=== PATIENT | male | born 2000 | race Two or more races ===

== ENCOUNTER 2024-03-11 23:07 | Emergency (ER) | payer MEDICAID, SELFPAY ==
[2024-03-11 23:18] VITALS: BMI 30.5
[2024-03-11 23:20] VITALS: BP 144/92; PULSE 86; RESP 20; TEMP 36.5; O2SAT 98
--- NOTE | 2024-03-11 23:42 | PD.EDSUICD ---
ED Psych RME/HPI General Chief Complaint: Suicidal Stated Complaint: SI Time Seen by Provider: 03/11/24 23:41 Arrival date/time: 03/11/24 23:07 Limitations: no limitations RME / HPI RME / HPI Narrative: Dr. Castillo's Main ED Evaluation: 23yo female with schizophrenia, bipolar disorder, JORDY BIBA from crisis response team in [place] presents to the ED on a 5150 hold. Per 5150 note, patient endorsed having SI, reporting he wanted to hang himself and/or slit his throat. Patient endorses having auditory and visual hallucinations. Denies any HI. Patient is not compliant with his psych medications. Related Data Previous Rx's ?Medication ?Instructions ?Recorded prednisone 50 mg tablet 50 mg PO QDAY #7 tabs 09/28/22 valacyclovir 1 gram tablet 1,000 mg PO TID #21 tabs 09/28/22 (Valtrex) ondansetron 4 mg disintegrating 4 mg PO Q8H PRN nausea and 11/12/22 tablet vomiting #30 tabs baclofen 10 mg tablet 10 mg PO TID #20 tabs 12/28/22 bacitracin 500 unit/gram topical 1 applic topical Q8H #14 grams 01/19/23 ointment Allergies Allergy/AdvReac Type Severity Reaction Status Date / Time No Known Allergies Allergy Verified 08/23/23 17:42 Review of Systems Review of Systems Systems Reviewed: All systems reviewed, normal except as documented ED Exam General Limitations: Present no limitations General appearance: Present alert and in no apparent distress Head Head exam: Present atraumatic Eye Eye exam: Present normal appearance, PERRL and EOMI ENT ENT exam: Present normal exam, normal oropharynx and mucous membranes moist Neck Neck exam: Present normal inspection, full ROM and trachea midline Chest Chest inspection: Present normal inspection and symmetric chest wall rise Respiratory Respiratory exam: Present normal lung sounds bilaterally Cardiovascular Cardiovascular exam: Present regular rate, normal rhythm and normal heart sounds Abdominal Exam Abdominal exam: Present soft and normal bowel sounds Extremities Exam Extremities exam: Present normal inspection and full ROM Back Exam Back exam: Present normal inspection and full ROM Neurological Exam Neurological exam: Present alert, oriented X3 and CN II-XII intact Psychiatric Psychiatric exam: Present agitated, anxious and suicidal ideation Skin Skin exam: Present warm, dry, intact and normal color Course Course Course Narrative: 0154: Patient is medically clear for crisis evaluation. OBSERVATION NOTE: The patient was placed in ED observation care at 03/12/24 at 0154 hours. The patient was placed in ED observation care because of pending psychiatric placement. The patients past medical history, social history, and family history were reviewed. 0605: Patient is accepted to [facility] by Dr. Matilde Dominguez and [employer] Donita. Quality Measures none Orders Category Date Time Status Bedside COVID-19 Antigen Test NOW Care 03/11/24 23:17 Active Acetaminophen Stat Lab 03/11/24 23:37 Completed Alcohol, Blood Medical Stat Lab 03/11/24 23:37 Completed CBC Stat Lab 03/11/24 23:37 Completed Comprehensive Metabolic Panel Stat Lab 03/11/24 23:37 Completed Drug Screen,Urine Stat Lab 03/11/24 23:13 Completed Salicylate Stat Lab 03/11/24 23:37 Completed Urinalysis Stat Lab 03/11/24 23:13 Completed DiphenhydrAMINE [Benadryl] Med 03/12/24 01:54 Discontinued 25 mg PO X1 ONE Vital Signs Vital signs: Vital Signs Temperature 97.7 F 03/11/24 23:20 Pulse Rate 86 03/11/24 23:20 Respiratory Rate 20 03/11/24 23:20 Blood Pressure 144/92 H 03/11/24 23:20 Pulse Oximetry (%) 98 03/11/24 23:20 Oxygen Delivery Method Room Air 03/11/24 23:20 Psych Patient data External records reviewed:: Other (specify) (Reviewed 5150 paperwork.) Clinical information provided by:: patient Social determinants that could affect healthcare access:: mental health Patient has the following chronic illnesses:: schizophrenia, bipolar disorder, JORDY How is presenting disease/condition affected by chronic disease/condition?: exacerbated by Evaluation data The following diagnostics were reviewed and interpreted by me:: lab results Lab and/or radiology exams considered but not ordered:: none Interpretation Summary: CBC is normal, CMP is normal, UA is unremarkable, UDS is positive for marijuana, Blood alcohol is negative, Acetaminophen is negative, according to my interpretation. Medications / Prescriptions Medications or Prescriptions considered but not ordered:: none Medication administrations:: Medication Administration History Discontinued Medications Diphenhydramine HCl (Diphenhydramine 25 Mg Capsule) 25 mg PO X1 ONE Stop: 03/12/24 01:55 Last Admin: 03/12/24 01:57 Dose: 25 mg Documented By: SUHAIL see above Consultations Consultation(s) initiated? (list below): No Diagnosis Psych Differential Diagnosis: acute psychosis, chronic schizophrenia, suicidal ideation and bipolar disorder Most likely diagnosis given after review of the tests above:: see below Admission Indicated Admission indicated?: not indicated Admission Request Was there a request for admission?: No Disposition Plan Disposition Plan: Transfer Discharge Plan Plan Patient Disposition: HOME (Self Care) Patient condition on transfer: Stable Prescriptions/Referrals Prescriptions/Med Rec: No Action baclofen 10 mg tablet 10 mg PO TID Qty: 20 0RF prednisone 50 mg tablet 50 mg PO QDAY Qty: 7 0RF valacyclovir [Valtrex] 1 gram tablet 1,000 mg PO TID Qty: 21 0RF ondansetron 4 mg tablet,disintegrating 4 mg PO Q8H PRN (Reason: nausea and vomiting) Qty: 30 0RF bacitracin 500 unit/gram ointment 1 applic topical Q8H Qty: 14 0RF Problem List Clinical Impression: Suicidal ideation, History of bipolar disorder, Hallucinations Patient/Caregiver Discharge Instructions Print Language: Lithuanian Stand Alone Forms: Jesusita Award Info., Patient Portal Info Letter
[2024-03-12 00:10] LABS: Collection Type, Urine Clean Catch
[2024-03-12 00:16] LABS: Basophils # (Auto) 0.1 Thou/mm3 (0.0-0.2); Basophils % (Auto) 1 % (0-2.5); Eosinophils # (Auto) 0.1 Thou/mm3 (0.0-0.5); Eosinophils % (Auto) 1 % (0-10); Hematocrit 47.7 % (41.0-53.0); Hemoglobin 16.7 g/dL (13.5-16.0); Immature Granulocytes % (Auto) 0 % (0-0); Immature Granulocytes Auto 0.01 Thou/mm3 (0.00-0.00); Lymphocytes # (Auto) 2.3 Thou/mm3 (1.0-4.8); Lymphocytes % (Auto) 27 % (10-50); Mean Corpuscular Hemoglobin 30.1 pg (25.0-35.0); Mean Corpuscular Volume 86 fL (80-100); Monocytes # (Auto) 0.7 Thou/mm3 (0.0-0.8); Monocytes % (Auto) 8 % (0-12); Neutrophils # (Auto) 5.4 Thou/mm3 (1.8-7.7); Neutrophils % (Auto) 63 % (37-80); Nucleated Red Blood Cell % 0 /100 WBC (0); Platelet Count 289 Thou/mm3 (140-440); RDW Standard Deviation 38.7 fL (35.1-43.9); Red Blood Count 5.55 Miln/mm3 (4.50-5.90); White Blood Count 8.7 Thou/mm3 (3.8-10.6)
[2024-03-12 00:33] LABS: Acetaminophen < 2.0 mcg/mL (10.0-20.0); Alanine Aminotransferase 167 U/L (10-49); Albumin/Globulin Ratio 2.2 (1.2-2.2); Alcohol, Blood Medical < 3.0 mg/dL (0-10.0); Alkaline Phosphatase 68 U/L (46-116); Anion Gap 9 (7-16); Aspartate Amino Transferase 84 U/L (0-34); BUN/Creatinine Ratio 9 Ratio (12-20); Bilirubin,Total 0.6 mg/dL (0.3-1.2); Blood Urea Nitrogen 11 mg/dL (9-23); Calcium 9.6 mg/dL (8.3-10.6); Calcium (Corrected) 9.6 mg/dL (8.5-10.1); Carbon Dioxide 27.8 mMol/L (20.0-31.0); Chloride 104 mMol/L (98-107); Creatinine (Component) 1.2 mg/dL (0.6-1.3); Estimated Creatinine Clearance 120.4 mL/min (>60); Globulin 2.3 gm/dL (2.3-3.5); Glucose 105 mg/dL (74-106); Osmolality,Calculated 280 (275-295); Potassium 3.9 mMol/L (3.4-5.1); Salicylate < 3.0 mg/dL; Sodium 141 mMol/L (136-145); Total Protein 7.3 gm/dL (5.7-8.2); eGFR > 60 See Note
[2024-03-12 00:44] LABS: Bilirubin,Urine Negative (Negative); Blood,Urine Negative (Negative); Clarity,Urine Clear (Clear/Hazy); Color,Urine Yellow (Lt Yel-Yel); Glucose, Urine Negative (Negative); Ketones,Urine Trace (Negative); Leukocyte Esterase,Urine Negative (Negative); Nitrite,Urine Negative (Negative); PH,Urine 6.5 (5.0-7.0); Protein,Urine 1+ (Neg - Trace); RBC,Urine 5 /hpf (0-3); Specific Gravity,Urine 1.033 (1.001-1.035); Squamous Epithelial Cell,Urine < 1 /hpf (0-5); WBC,Urine 2 /hpf (0-5)
[2024-03-12 01:31] LABS: Amphetamine/Methamp Scrn,U Negative (Negative); Barbiturate Screen,Urine Negative (Negative); Benzodiazepines Screen,Urine Negative (Negative); Benzoylecgonine Screen, Ur Negative (Negative); Fentanyl Screen,Urine Negative (Negative); Opiate Screen,Urine Negative (Negative); THC Screen,Urine Positive (Negative)
[2024-03-12] MEDS: DiphenhydrAMINE 25 MG CAPSULE PO (01:57)
[2024-03-12 01:59] VITALS: BP 109/79; PULSE 71; RESP 20; TEMP 36.5; O2SAT 98
--- NOTE | 2024-03-12 04:17 | PC.NURSE ---
PACKET SENT OUT TO ALL ADULT LPS FACILITIES, PT MEDICALLY CLEARED AND NOW PENDING PSYCHIATRIC PLACEMENT
[2024-03-12 04:28] VITALS: BP 114/78; PULSE 79; RESP 20; TEMP 36.2; O2SAT 98
--- NOTE | 2024-03-12 05:51 | PC.NURSE ---
ARUNA CALLED TO GET CLINICALS FROM PRIMARY RN
[2024-03-12 06:00] VITALS: BP 130/84; PULSE 70; RESP 19; TEMP 36.2; O2SAT 100
--- NOTE | 2024-03-12 06:13 | PC.NURSE ---
ACCEPTED [facility], DR NOLEN/YADIEL. [id number] [place] [address] REPORT #[phone]
--- NOTE | 2024-03-12 07:08 | PC.CC ---
Patient was placed on a 5150-Hold by [facility] with [email or web address] [facility] for Danger to Self. Patient has been accepted to [facility], Dr. Dominguez, transportation is arranged for ETA p/u 0830. ASW met with the patient face to face introduced self, role, and reason for visit. ASW provided advisement to the patient that he has been accepted to [facility].
--- NOTE | 2024-03-12 08:00 | PC.NURSE ---
pt offered breakfast meal, pt refused.
[2024-03-12 08:06] VITALS: BP 137/86; PULSE 70; RESP 12; TEMP 36.6; O2SAT 98
[2024-03-12 08:55] VITALS: BP 125/67; PULSE 80; RESP 16; TEMP 36.6; O2SAT 99
== END 2024-03-12 08:55 ==
PROVIDERS: Emergency Provider Emergency Medicine; PCP Physician Assistant
DX: R45.851 Suicidal ideations (principal); F31.9 Bipolar disorder, unspecified; F20.9 Schizophrenia, unspecified
CPT/HCPCS: 36415; 80053; 80307; 80320; 80329; 81001; 85025; 87811; 96127; 99285; A9270; G0480

== ENCOUNTER 2024-05-13 10:43 | Emergency (ER) | payer MEDICAID, SELFPAY ==
[2024-05-13 10:58] VITALS: PULSE 95; RESP 19; O2SAT 100; BMI 31.6
[2024-05-13 11:07] VITALS: BP 128/81; PULSE 75; RESP 16; TEMP 36.9; O2SAT 97
--- NOTE | 2024-05-13 11:19 | EKG_ITS ---
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
--- NOTE | 2024-05-13 11:20 | PD.EDRME ---
Rapid Medical Screening Exam RME Arrival date/time: 05/13/24 10:43 23-year-old male with a history of schizophrenia, presents to the emergency room with a chief complaint of dizziness, lightheadedness, visual disturbances x 3 days. I have greeted and performed a focused initial assessment of this patient. A comprehensive ED assessment and evaluation of the patient, analysis of all test results, and completion of the medical decision making process will be conducted by additional ED providers. Time Seen by Provider: 05/13/24 11:06 Vital signs: Vital Signs Temperature 98.4 F 05/13/24 11:07 Pulse Rate 75 05/13/24 11:07 Respiratory Rate 16 05/13/24 11:07 Blood Pressure 128/81 05/13/24 11:07 Pulse Oximetry (%) 97 05/13/24 11:07 Oxygen Delivery Method Room Air 05/13/24 11:07 Vital signs reviewed by provider: Yes
[2024-05-13 11:59] LABS: Basophils # (Auto) 0.1 Thou/mm3 (0.0-0.2); Basophils % (Auto) 1 % (0-2.5); Eosinophils # (Auto) 0.1 Thou/mm3 (0.0-0.5); Eosinophils % (Auto) 1 % (0-10); Hematocrit 46.5 % (41.0-53.0); Hemoglobin 16.3 g/dL (13.5-16.0); Immature Granulocytes % (Auto) 1 % (0-0); Immature Granulocytes Auto 0.04 Thou/mm3 (0.00-0.00); Lymphocytes # (Auto) 1.7 Thou/mm3 (1.0-4.8); Lymphocytes % (Auto) 23 % (10-50); Mean Corpuscular HGB Conc 35.1 g/dl (31.0-37.0); Mean Corpuscular Hemoglobin 29.7 pg (25.0-35.0); Mean Corpuscular Volume 85 fL (80-100); Monocytes # (Auto) 0.5 Thou/mm3 (0.0-0.8); Monocytes % (Auto) 6 % (0-12); Neutrophils # (Auto) 5.2 Thou/mm3 (1.8-7.7); Neutrophils % (Auto) 69 % (37-80); Nucleated Red Blood Cell % 0 /100 WBC (0); Platelet Count 269 Thou/mm3 (140-440); RDW Standard Deviation 36.8 fL (35.1-43.9); Red Blood Count 5.48 Miln/mm3 (4.50-5.90); White Blood Count 7.6 Thou/mm3 (3.8-10.6)
[2024-05-13 12:20] LABS: Alanine Aminotransferase 83 U/L (10-49); Albumin, Serum 4.7 gm/dL (3.5-5.0); Albumin/Globulin Ratio 1.9 (1.2-2.2); Alkaline Phosphatase 76 U/L (46-116); Anion Gap 6 (7-16); Aspartate Amino Transferase 49 U/L (0-34); BUN/Creatinine Ratio 6 Ratio (12-20); Bilirubin,Total 0.5 mg/dL (0.3-1.2); Blood Urea Nitrogen 7 mg/dL (9-23); Calcium 9.8 mg/dL (8.3-10.6); Calcium (Corrected) 9.8 mg/dL (8.5-10.1); Carbon Dioxide 30.9 mMol/L (20.0-31.0); Chloride 102 mMol/L (98-107); Creatinine (Component) 1.1 mg/dL (0.6-1.3); Estimated Creatinine Clearance 137.5 mL/min (>60); Globulin 2.5 gm/dL (2.3-3.5); Glucose 102 mg/dL (74-106); Osmolality,Calculated 275 (275-295); Potassium 4.5 mMol/L (3.4-5.1); Sodium 139 mMol/L (136-145); Total Protein 7.2 gm/dL (5.7-8.2); Troponin I < 0.002 ng/mL (0.0-0.045); eGFR > 60 See Note
[2024-05-13 12:54] LABS: Collection Type, Urine Clean Catch; Squamous Epithelial Cell,Urine 0 /hpf (0-5)
[2024-05-13 13:09] LABS: Bilirubin,Urine Negative (Negative); Blood,Urine Negative (Negative); Clarity,Urine Clear (Clear/Hazy); Color,Urine Colorless (Lt Yel-Yel); Glucose, Urine Negative (Negative); Ketones,Urine Negative (Negative); Leukocyte Esterase,Urine Negative (Negative); Nitrite,Urine Negative (Negative); PH,Urine 7.5 (5.0-7.0); Protein,Urine Negative (Neg - Trace); RBC,Urine < 1 /hpf (0-3); Specific Gravity,Urine 1.007 (1.001-1.035); Urobilinogen,Urine Negative mg/dL (0.0-1.0); WBC,Urine < 1 /hpf (0-5)
[2024-05-13 13:19] LABS: Amphetamine/Methamp Scrn,U Negative (Negative); Barbiturate Screen,Urine Negative (Negative); Benzodiazepines Screen,Urine Negative (Negative); Benzoylecgonine Screen, Ur Negative (Negative); Fentanyl Screen,Urine Negative (Negative); Opiate Screen,Urine Negative (Negative); THC Screen,Urine Positive (Negative)
--- NOTE | 2024-05-13 13:56 | PD.EDRME ---
Rapid Medical Screening Exam RME Arrival date/time: 05/13/24 10:43 05/13/24 10:43 23-year-old male with a history of schizophrenia, presents to the emergency room with a chief complaint of dizziness, lightheadedness, visual disturbances x 3 days. I have greeted and performed a focused initial assessment of this patient. A comprehensive ED assessment and evaluation of the patient, analysis of all test results, and completion of the medical decision making process will be conducted by additional ED providers. Time Seen by Provider: 05/13/24 11:06 Vital signs: Vital Signs Temperature 98.4 F 05/13/24 11:07 Pulse Rate 75 05/13/24 11:07 Respiratory Rate 16 05/13/24 11:07 Blood Pressure 128/81 05/13/24 11:07 Pulse Oximetry (%) 97 05/13/24 11:07 Oxygen Delivery Method Room Air 05/13/24 11:07 Vital signs reviewed by provider: Yes RME Narrative: 05/13/24 10:43 23-year-old male with a history of schizophrenia, presents to the emergency room with a chief complaint of dizziness, lightheadedness, visual disturbances x 3 days. I have greeted and performed a focused initial assessment of this patient. A comprehensive ED assessment and evaluation of the patient, analysis of all test results, and completion of the medical decision making process will be conducted by additional ED providers.
== END 2024-05-13 19:00 | disposition left against medical advice (07) ==
LOC: SERX 12:32
PROVIDERS: Nurse Practitioner Family; Emergency Provider Emergency Medicine; PCP Physician Assistant
DX: R42 Dizziness and giddiness (principal); H53.9 Unspecified visual disturbance; I49.8 Other specified cardiac arrhythmias; Z53.29 Procedure and treatment not carried out because of patient's decision for other reasons
CPT/HCPCS: 36415; 80053; 80307; 81001; 84484; 85025; 87086; 93005; 99281

== ENCOUNTER 2024-05-29 22:23 | Emergency (ER) | payer MEDICAID, SELFPAY ==
[2024-05-29 22:23] VITALS: BMI 31.8
--- NOTE | 2024-05-29 22:28 | EKG_ITS ---
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
[2024-05-29 22:43] VITALS: BP 127/85; PULSE 84; RESP 19; TEMP 36.6; O2SAT 96
[2024-05-29] MEDS: MECLIZINE HCL 25 MG TABLET 50 MG PO (23:29)
--- NOTE | 2024-05-30 04:10 | PD.EDDIZZY ---
ED Dizzyness RME/HPI General Chief Complaint: Dizziness Stated Complaint: DIZZY AND LIGHTHEADED Time Seen by Provider: 05/29/24 23:10 Arrival date/time: 05/29/24 22:23 23M with history of psych/alcohol use presents to ED several weeks of dizziness. Patient has been taking his meds. Limitations: no limitations Related Data Previous Rx's ?Medication ?Instructions ?Recorded prednisone 50 mg tablet 50 mg PO QDAY #7 tabs 09/28/22 valacyclovir 1 gram tablet 1,000 mg PO TID #21 tabs 09/28/22 (Valtrex) ondansetron 4 mg disintegrating 4 mg PO Q8H PRN nausea and 11/12/22 tablet vomiting #30 tabs baclofen 10 mg tablet 10 mg PO TID #20 tabs 12/28/22 bacitracin 500 unit/gram topical 1 applic topical Q8H #14 grams 01/19/23 ointment meclizine 25 mg tablet 25 mg PO BID PRN dizziness #30 tabs 05/30/24 Allergies Allergy/AdvReac Type Severity Reaction Status Date / Time No Known Allergies Allergy Verified 05/13/24 11:02 Review of Systems Review of Systems Systems Reviewed: All systems reviewed, normal except as documented Constitutional Constitutional: Reports system reviewed and no additional complaints, except as documented, Denies fever(s) and Denies headache(s) ENT Ears, Nose, Mouth, and Throat: Reports as per HPI, Denies disequilibrium, Denies headache(s) and Reports vertigo Cardiovascular Cardiovascular: Reports system reviewed and no additional complaints, except as documented, Denies chest pain and Denies dyspnea Respiratory Respiratory: Reports system reviewed and no additional complaints, except as documented, Denies cough and Denies dyspnea Gastrointestinal Gastrointestinal: Reports system reviewed and no additional complaints, except as documented, Denies abdominal pain, Denies nausea and Denies vomiting Neurologic Neurologic: Reports system reviewed and no additional complaints, except as documented, Denies confusion, Denies disequilibrium, Denies headache(s) and Reports vertigo Psychiatric Psychiatric: Denies confusion Past Medical History Past Medical History NEUROLOGIC: Positive Neurological Disorders CARDIAC: Negative Congestive Heart Failure RESPIRATORY: Negative Chronic Obstructive Pulmonary Disease (COPD) GENITOURINARY: Negative Renal Disease ENDOCRINE: Negative Diabetes Mellitus Type 1 or Diabetes Mellitus Type 2 PSYCHO/SOCIAL: Positive Psychiatric Problems, Schizophrenia, Recreational Drug Use and Bipolar Disorder Social History SMOKING STATUS: Current every day smoker SUBSTANCE USE: marijuana and crack/cocaine ED Exam General Limitations: Present no limitations General appearance: Present alert and in no apparent distress Head Head exam: Present atraumatic Eye Eye exam: Present normal appearance, PERRL and EOMI ENT ENT exam: Present normal exam, normal oropharynx and mucous membranes moist Neck Neck exam: Present normal inspection, full ROM and trachea midline Chest Chest inspection: Present normal inspection and symmetric chest wall rise Respiratory Respiratory exam: Present normal lung sounds bilaterally Cardiovascular Cardiovascular exam: Present regular rate, normal rhythm and normal heart sounds Abdominal Exam Abdominal exam: Present soft and normal bowel sounds Extremities Exam Extremities exam: Present normal inspection and full ROM Back Exam Back exam: Present normal inspection and full ROM Neurological Exam Neurological exam: Present alert, oriented X3 and CN II-XII intact Psychiatric Psychiatric exam: Present normal affect and normal mood Skin Skin exam: Present warm, dry, intact and normal color Course Quality Measures none Orders Category Date Time Status EKG (ED ONLY) *Do not use* NOW Care 05/29/24 22:28 Completed EKG (ED Only) Stat Exams 05/29/24 22:28 Draft Meclizine HCl [Antivert] Med 05/29/24 23:11 Discontinued 50 mg PO X1 ONE Vital Signs Vital signs: Vital Signs Temperature 97.8 F 05/29/24 22:43 Pulse Rate 84 05/29/24 22:43 Respiratory Rate 19 05/29/24 22:43 Blood Pressure 127/85 H 05/29/24 22:43 Pulse Oximetry (%) 96 05/29/24 22:43 Oxygen Delivery Method Room Air 05/29/24 22:43 O2 at 96% on RA and WNLs Dizziness MDM Narrative MDM Narrative:: 23M with history of psych/alcohol use presents to ED several weeks of dizziness. Patient has been taking his meds. Physical exam reveals normal pupil response and EOM. CN II-XII grossly intact. Gait normal. Patient is afebrile, calm, and alert. EKG is NSR. Meclizine significant improved symptoms. Patient data External records reviewed:: [facility] previous records Clinical information provided by:: patient Social determinants that could affect healthcare access:: mental health Patient has the following chronic illnesses:: psych How is presenting disease/condition affected by chronic disease/condition?: exacerbated by Evaluation data The following diagnostics were reviewed and interpreted by me:: EKG tracing(s) Lab and/or radiology exams considered but not ordered:: ordered Interpretation Summary: above Medications / Prescriptions Medications or Prescriptions considered but not ordered:: ordered Medication administrations:: Medication Administration History Discontinued Medications Meclizine HCl (Meclizine Hcl 25 Mg Tablet) 50 mg PO X1 ONE Stop: 05/29/24 23:12 Last Admin: 05/29/24 23:29 Dose: 50 mg Documented By: MS above Consultations Consultation(s) initiated? (list below): No Diagnosis Dizziness Differential Diagnosis: adverse reaction to drug, benign paroxysmal positional vertigo, orthostatic hypotension, vertebral basilar insufficiency, cerebrovascular accident, acute vestibular neuronitis, transient cerebral ischemia and other (dizziness) Most likely diagnosis given after review of the tests above:: dizziness Admission Indicated Admission indicated?: not indicated Admission Request Was there a request for admission?: No Disposition Plan Disposition Plan: Discharge Discharge Attestation Discharge Attestation: The patient and all family members were given an opportunity to ask questions and understood the discharge instructions. Discharge instructions specifically effects, indications for sooner follow up or return to the emergency department, and the expected course of current diagnosis. Patient condition: Stable Discharge Plan Plan Patient Disposition: HOME (Self Care) Disposition Comment: Stable Prescriptions/Referrals Prescriptions/Med Rec: New meclizine 25 mg tablet 25 mg PO BID PRN (Reason: dizziness) Qty: 30 0RF No Action baclofen 10 mg tablet 10 mg PO TID Qty: 20 0RF prednisone 50 mg tablet 50 mg PO QDAY Qty: 7 0RF valacyclovir [Valtrex] 1 gram tablet 1,000 mg PO TID Qty: 21 0RF ondansetron 4 mg tablet,disintegrating 4 mg PO Q8H PRN (Reason: nausea and vomiting) Qty: 30 0RF bacitracin 500 unit/gram ointment 1 applic topical Q8H Qty: 14 0RF Referrals: No Primary/Family,Physician [Primary Care Provider] - In 1 week Problem List Clinical Impression: Dizziness Patient/Caregiver Discharge Instructions Education Materials: ED Dizziness, Uncertain Cause Additional Instructions: Please follow-up with PCP within 24-48 hours and return immediately if symptoms worsen. Print Language: Setswana Stand Alone Forms: Patient Portal Info Letter CORDELIA/TRESSA Supervising Physician CORDELIA/TRESSA Supervising Physician: Dr. Castillo
== END 2024-05-30 01:00 | disposition home or self-care (01) ==
PROVIDERS: Emergency Provider Emergency Medicine
DX: R42 Dizziness and giddiness (principal)
CPT/HCPCS: 93005; 99283; A9270

== ENCOUNTER → 2024-08-10 | Outpatient (CLI) | payer MEDICAID, SELFPAY ==
--- NOTE | 2024-08-10 08:00 | XR_ITS ---
Examination: MRI brain without intravenous contrast. Date and time of exam: 04/12/2024 0915 hours INDICATIONS: Headaches dizziness beginning this year Technique: Multiple axial and sagittal images of the brain obtained. Siemens high-resolution 1.5 Jenna short bore scanners utilized. Sagittal sections, T1-weighted, TR 500, TE 14, are performed. Axial sections proton-density and T2-weighted have been obtained. Inversion recovery axial images, TR 9, 260, TE 111, TI 2500. Diffusion weighted images, axial sections, TR 4800, TE 128, B value 1000 Axial sections, ADC map, TR 4800, TE 128 Findings: Enlargement of the sella turcica is not present. The optic chiasm and infundibular are not remarkable. Prepontine and interpeduncular cisterns are not enlarged. There is no localized enlargement of the medulla or kandi. Fourth ventricle and cerebellar tonsils appear normal in position. No subacute area of hemorrhage density is seen. Mass in the cerebellopontine angle region is not evident. Globes symmetrical. Orbital musculature including medial lateral rectus muscles do not exhibit abnormality. Diffusion-weighted images demonstrate no focus of restricted diffusion. Increased white matter signal not seen Mass effect upon the ventricular system is not identified. Impression: Negative for acute hemorrhage mass effect or midline shift No acute infarct No MR findings diagnostic for demyelinating disease Significant chronic ethmoid sinusitis
== END | disposition home or self-care (01) ==
PROVIDERS: PCP Physician Assistant; Referring Provider Psychiatry & Neurology Clinical Neurophysiology; Visit Provider Psychiatry & Neurology Clinical Neurophysiology
DX: J32.2 Chronic ethmoidal sinusitis (principal); G40.909 Epilepsy, unspecified, not intractable, without status epilepticus; R62.50 Unspecified lack of expected normal physiological development in childhood
CPT/HCPCS: 70551

== ENCOUNTER 2024-09-14 12:09 | Emergency (ER) | payer MEDICAID, SELFPAY ==
[2024-09-14 12:11] VITALS: BMI 33.0
--- NOTE | 2024-09-14 12:13 | EKG_ITS ---
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
[2024-09-14 12:16] VITALS: BP 132/88; PULSE 106; RESP 18; TEMP 36.7; O2SAT 95
--- NOTE | 2024-09-14 12:29 | XR_ITS ---
Examination: PA lateral chest 2 views TECHNIQUE: Upright PA lateral chest 2 views Date and time: September 14, 2024 1232 hours INDICATIONS: Shortness of breath chest pain beginning 4 days ago. FINDINGS: Normal heart size. Lungs are clear. Osseous structures are intact IMPRESSION: No active disease
--- NOTE | 2024-09-14 12:31 | PD.EDRME ---
Rapid Medical Screening Exam RME Arrival date/time: 09/14/24 12:09 23-year-old male with a history of schizophrenia presents to the emergency room with a chief complaint of palpitations and chest pain x 4 days I have greeted and performed a focused initial assessment of this patient. A comprehensive ED assessment and evaluation of the patient, analysis of all test results, and completion of the medical decision making process will be conducted by additional ED providers. Chief Complaint: Arrhythmia/Palpitations Vital signs: Vital Signs Temperature 98.0 F 09/14/24 12:16 Pulse Rate 106 H 09/14/24 12:16 Respiratory Rate 18 09/14/24 12:16 Blood Pressure 132/88 H 09/14/24 12:16 Pulse Oximetry (%) 95 09/14/24 12:16 Oxygen Delivery Method Room Air 09/14/24 12:16 Vital signs reviewed by provider: Yes
[2024-09-14 12:53] LABS: Collection Type, Urine Clean Catch; Squamous Epithelial Cell,Urine 0 /hpf (0-5)
[2024-09-14 12:54] LABS: Basophils # (Auto) 0.1 Thou/mm3 (0.0-0.2); Basophils % (Auto) 1 % (0-2.5); Eosinophils # (Auto) 0.1 Thou/mm3 (0.0-0.5); Eosinophils % (Auto) 1 % (0-10); Hematocrit 46.4 % (41.0-53.0); Hemoglobin 15.9 g/dL (13.5-16.0); Immature Granulocytes Auto 0.03 Thou/mm3 (0.00-0.00); Lymphocytes # (Auto) 1.7 Thou/mm3 (1.0-4.8); Lymphocytes % (Auto) 23 % (10-50); Mean Corpuscular HGB Conc 34.3 g/dl (31.0-37.0); Mean Corpuscular Hemoglobin 29.8 pg (25.0-35.0); Mean Corpuscular Volume 87 fL (80-100); Monocytes # (Auto) 0.4 Thou/mm3 (0.0-0.8); Monocytes % (Auto) 6 % (0-12); Neutrophils # (Auto) 5.1 Thou/mm3 (1.8-7.7); Neutrophils % (Auto) 69 % (37-80); Nucleated Red Blood Cell # 0.00 Thou/mm3 (0.00-0.00); Nucleated Red Blood Cell % 0 /100 WBC (0); Platelet Count 238 Thou/mm3 (140-440); RDW Standard Deviation 38.4 fL (35.1-43.9); Red Blood Count 5.34 Miln/mm3 (4.50-5.90); White Blood Count 7.4 Thou/mm3 (3.8-10.6)
[2024-09-14 12:57] LABS: Bilirubin,Urine Negative (Negative); Blood,Urine Negative (Negative); Clarity,Urine Clear (Clear/Hazy); Color,Urine Lt-Yellow (Lt Yel-Yel); Glucose, Urine Negative (Negative); Ketones,Urine Negative (Negative); Leukocyte Esterase,Urine Negative (Negative); Nitrite,Urine Negative (Negative); PH,Urine 7.5 (5.0-7.0); Protein,Urine Negative (Neg - Trace); RBC,Urine < 1 /hpf (0-3); Specific Gravity,Urine 1.015 (1.001-1.035); Urobilinogen,Urine Negative mg/dL (0.0-1.0); WBC,Urine 1 /hpf (0-5)
[2024-09-14 13:08] LABS: Amphetamine/Methamp Scrn,U Negative (Negative); Barbiturate Screen,Urine Negative (Negative); Benzodiazepines Screen,Urine Negative (Negative); Benzoylecgonine Screen, Ur Negative (Negative); Fentanyl Screen,Urine Negative (Negative); Opiate Screen,Urine Negative (Negative); THC Screen,Urine Negative (Negative)
[2024-09-14 13:14] LABS: B-Type Natriuretic Peptide < 20 pg/mL (0-100)
[2024-09-14 13:28] LABS: Alanine Aminotransferase 26 U/L (10-49); Albumin, Serum 4.5 gm/dL (3.5-5.0); Albumin/Globulin Ratio 1.7 (1.2-2.2); Alkaline Phosphatase 74 U/L (46-116); Anion Gap 7 (7-16); Aspartate Amino Transferase 24 U/L (0-34); BUN/Creatinine Ratio 6 Ratio (12-20); Bilirubin,Total 0.6 mg/dL (0.3-1.2); Blood Urea Nitrogen 7 mg/dL (9-23); Calcium 9.4 mg/dL (8.3-10.6); Calcium (Corrected) 9.4 mg/dL (8.5-10.1); Carbon Dioxide 26.5 mMol/L (20.0-31.0); Chloride 106 mMol/L (98-107); Creatinine (Component) 1.1 mg/dL (0.6-1.3); Estimated Creatinine Clearance 140.2 mL/min (>60); Globulin 2.7 gm/dL (2.3-3.5); Glucose 100 mg/dL (74-106); Osmolality,Calculated 275 (275-295); Potassium 4.2 mMol/L (3.4-5.1); Sodium 139 mMol/L (136-145); Total Protein 7.2 gm/dL (5.7-8.2); Troponin I < 0.020 ng/mL (0.0-0.045); eGFR > 60 See Note
--- NOTE | 2024-09-14 15:05 | PD.EDARRY ---
ED Arrhythmia Palp. RME/HPI General Chief Complaint: Arrhythmia/Palpitations Stated Complaint: MY HEART HAS BEEN TINGLING FOR 4 DAYS Arrival date/time: 09/14/24 12:09 RME / HPI RME / HPI narrative: 09/14/24 12:09 23-year-old male with a history of schizophrenia presents to the emergency room with a chief complaint of palpitations and chest pain x 4 days I have greeted and performed a focused initial assessment of this patient. A comprehensive ED assessment and evaluation of the patient, analysis of all test results, and completion of the medical decision making process will be conducted by additional ED providers. DR. ERIC MAIN ED EVALUATION: 23-year-old male with past medical history of schizophrenia, bipolar disorder, generalized anxiety disorder, and marijuana use presents to the Emergency Department with complaint of chest palpitations starting today. Associated symptoms include anxiety and bilateral hand numbness and tingling. Related Data Previous Rx's ?Medication ?Instructions ?Recorded prednisone 50 mg tablet 50 mg PO QDAY #7 tabs 09/28/22 valacyclovir 1 gram tablet 1,000 mg PO TID #21 tabs 09/28/22 (Valtrex) ondansetron 4 mg disintegrating 4 mg PO Q8H PRN nausea and 11/12/22 tablet vomiting #30 tabs baclofen 10 mg tablet 10 mg PO TID #20 tabs 12/28/22 bacitracin 500 unit/gram topical 1 applic topical Q8H #14 grams 01/19/23 ointment meclizine 25 mg tablet 25 mg PO BID PRN dizziness #30 tabs 05/30/24 Allergies Allergy/AdvReac Type Severity Reaction Status Date / Time No Known Allergies Allergy Verified 09/14/24 12:10 Review of Systems Review of Systems Systems Reviewed: All systems reviewed, normal except as documented Past Medical History Past Medical History NEUROLOGIC: Positive Neurological Disorders PSYCHO/SOCIAL: Positive Psychiatric Problems, Schizophrenia, Recreational Drug Use and Bipolar Disorder Social History SMOKING STATUS: Current every day smoker SUBSTANCE USE: marijuana and crack/cocaine ED Exam Narrative Physical exam: GENERAL APPEARANCE: alert and oriented x 4, well-developed, well-nourished, no acute distress, anxious VITALS: All vitals were reviewed and the pulse ox is 95% on room air, which is normal according to my interpretation. HEENT: Normocephalic, atraumatic; pupils equal, round, reactive to light; EOMI; mucous membranes pink, moist; oropharynx clear NECK: Supple LUNGS: CTABL; no wheezes, no rales, no rhonchi HEART: tachycardic, regular rhythm; normal S1, S2; no murmurs ABDOMEN: non distended; normal BS; soft, no tenderness, no guarding, no rebound; no masses, no organomegaly, no hernia BACK: no CVA tenderness EXTREMITIES: atraumatic; no edema NEUROLOGIC: awake; alert and oriented x4; cranial nerves II-XII grossly intact; no focal sensory or motor deficits PSYCHIATRIC: appropriate mood and affect SKIN: warm, dry, normal color; no rashes Course Quality Measures none Orders Category Date Time Status EKG (ED ONLY) *Do not use* NOW Care 09/14/24 12:13 Completed EKG (ED Only) Stat Exams 09/14/24 12:13 Draft XR chest 2V Stat Exams 09/14/24 12:29 Completed B-Type Natriuretic Peptide Stat Lab 09/14/24 12:47 Completed CBC Stat Lab 09/14/24 12:47 Completed Comprehensive Metabolic Panel Stat Lab 09/14/24 12:47 Completed Drug Screen,Urine Stat Lab 09/14/24 12:45 Completed Troponin I Stat Lab 09/14/24 12:47 Completed Urinalysis Stat Lab 09/14/24 12:45 Completed Vital Signs Vital signs: Vital Signs Temperature 98.0 F 09/14/24 12:16 Pulse Rate 106 H 09/14/24 12:16 Respiratory Rate 18 09/14/24 12:16 Blood Pressure 132/88 H 09/14/24 12:16 Pulse Oximetry (%) 95 09/14/24 12:16 Oxygen Delivery Method Room Air 09/14/24 12:16 Arrhythmia/Palpitations MDM Narrative MDM Narrative:: Ange Knapp am scribing for and in the presence of Dr. Eric. Patient data External records reviewed:: [facility] previous records Clinical information provided by:: patient Social determinants that could affect healthcare access:: substance use (Marijuana use) Patient has the following chronic illnesses:: schizophrenia, bipolar disorder, and generalized anxiety disorder How is presenting disease/condition affected by chronic disease/condition?: exacerbated by Evaluation data The following diagnostics were reviewed and interpreted by me:: lab results, radiology exam(s) and EKG tracing(s) Lab and/or radiology exams considered but not ordered:: none Interpretation Summary: My interpretation: EKG performed at 1218 hours, sinus tachycardia, rate 115, partial right bundle branch block, no acute ischemic changes Procedure(s): XR chest 2V Accession Number(s): [id number] cc: Joon Islas PSYCHIATRIC SECRETARY; Jeovany Lemus MD; Ed Couch PA-C~ Examination: PA lateral chest 2 views TECHNIQUE: Upright PA lateral chest 2 views Date and time: September 14, 2024 1232 hours INDICATIONS: Shortness of breath chest pain beginning 4 days ago. FINDINGS: Normal heart size. Lungs are clear. Osseous structures are intact IMPRESSION: No active disease Dictated By: Jeovany Lemus MD Medications / Prescriptions Medications or Prescriptions considered but not ordered:: none Medication administrations:: none Consultations Consultation(s) initiated? (list below): No Diagnosis Differential diagnosis arrhythmia/palpitations: palpitations, anxiety and sinus tachycardia Most likely diagnosis given after review of the tests above:: Tingling sensation Palpitations Admission Indicated Admission indicated?: not indicated Admission Request Was there a request for admission?: No Disposition Plan Disposition Plan: Discharge Discharge Attestation Discharge Attestation: The patient and all family members were given an opportunity to ask questions and understood the discharge instructions. Discharge instructions specifically effects, indications for sooner follow up or return to the emergency department, and the expected course of current diagnosis. Patient condition: Stable Discharge Plan Plan Patient Disposition: HOME (Self Care) Prescriptions/Referrals Prescriptions/Med Rec: No Action baclofen 10 mg tablet 10 mg PO TID Qty: 20 0RF prednisone 50 mg tablet 50 mg PO QDAY Qty: 7 0RF valacyclovir [Valtrex] 1 gram tablet 1,000 mg PO TID Qty: 21 0RF ondansetron 4 mg tablet,disintegrating 4 mg PO Q8H PRN (Reason: nausea and vomiting) Qty: 30 0RF bacitracin 500 unit/gram ointment 1 applic topical Q8H Qty: 14 0RF meclizine 25 mg tablet 25 mg PO BID PRN (Reason: dizziness) Qty: 30 0RF Referrals: Ed Couch PA-C [Primary Care Provider] - In 1 week Problem List Clinical Impression: Tingling sensation, Palpitations Patient/Caregiver Discharge Instructions Education Materials: ED Palpitations Print Language: Citizen Of [place] Stand Alone Forms: [facility] Award Info., Patient Portal Info Letter
== END 2024-09-14 15:29 | disposition home or self-care (01) ==
PROVIDERS: Nurse Practitioner Family; Emergency Provider Emergency Medicine; PCP Physician Assistant
DX: R20.2 Paresthesia of skin (principal); R00.2 Palpitations; R06.02 Shortness of breath; R07.9 Chest pain, unspecified
CPT/HCPCS: 36415; 71046; 80053; 80307; 81001; 83880; 84484; 85025; 93005; 99283

== ENCOUNTER 2024-09-15 23:48 | Emergency (ER) | payer MEDICAID, SELFPAY ==
--- NOTE | 2024-09-16 00:42 | PC.NURSE ---
FAMILY INFORMED ME THAT THEY ARE GOING HOME.
== END 2024-09-16 00:43 | disposition left against medical advice (07) ==
PROVIDERS: Emergency Provider Emergency Medicine
DX: Z53.21 Procedure and treatment not carried out due to patient leaving prior to being seen by health care provider (principal)
CPT/HCPCS: 99282